=== PATIENT | male | born 1975 | race Caucasian/White ===

== ENCOUNTER 2017-10-22 12:24 | Emergency (ER) | payer BC ==
[2017-10-22] MEDS ORDERED: Alum Hydrox/Mag Hydrox/Simeth 30 ML, Lidocaine 2% 15 ML PO ONE ×2 (13:12)
--- NOTE | 2017-10-22 13:26 | EDM.PDOC ---
ED HPI GENERAL MEDICAL PROBLEM - General Chief Complaint: Chest Pain Stated Complaint: CHEST PAIN Time Seen by Provider: 10/22/17 12:55 Source of Information: Reports: Patient History Limitations: Reports: No Limitations - History of Present Illness INITIAL COMMENTS - FREE TEXT/NARRATIVE: Patient is a 42 y/o female who presents to the E.D. complaining of sharp pain to the anterior/lateral chest worsened with taking a deep breath and palpation. Patient states the pain came on at 0100 hrs last night. States he just flew from [place] to [place] yesterday for work. He consumed 5 to 6 beers last night. Has history of GERD and takes prilosec daily. Is mildly short of breath. He has no history of PE or DVT. Does not have a history of CAD. States at the age of 9 had open heart surgery for SVT. Unclear what procedure was performed. Patient takes atenolol and fish oil. Patient currently denies any cough, hemoptysis, dizziness, presyncope/syncopal episodes, history of pancreatitis, pain to his back, radiating pain, or any additional complaints. Patient does not smoke and does not use any recreational drugs. Mother has a history of coronary disease. Chest Pain Score (Numeric/FACES): 3 - Related Data Allergies Allergy/AdvReac Type Severity Reaction Status Date / Time cephalexin [From Keflex] Allergy Cannot Verified 10/22/17 12:36 Remember Penicillins Allergy Cannot Verified 10/22/17 12:36 Remember Home Meds: Home Meds Atenolol 25 mg PO DAILY 10/22/17 [History] Past Medical History Cardiovascular History: Reports: Other (See Below) Other Cardiovascular History: SVT-open heart at age 9 Respiratory History: Reports: Other (See Below) Other Respiratory History: seasonal allergies Musculoskeletal History: Reports: Other (See Below) Other Musculoskeletal History: right ACL repair Social & Family History - Tobacco Use Smoking Status *Q: Never Smoker - Caffeine Use Caffeine Use: Reports: Coffee, Tea - Recreational Drug Use Recreational Drug Use: No ED ROS GENERAL - Review of Systems Review Of Systems: ROS reveals no pertinent complaints other than HPI. ED EXAM, GENERAL - Physical Exam Exam: See Below Exam Limited By: No Limitations General Appearance: Alert, WD/WN, No Apparent Distress Ears: Hearing Grossly Normal Nose: Normal Inspection Throat/Mouth: Normal Voice, No Airway Compromise Neck: Normal Inspection, Supple Respiratory/Chest: No Respiratory Distress, Lungs Clear, Normal Breath Sounds, No Accessory Muscle Use, Other (tenderness along the left 5/6 rib mid clavicular ) Cardiovascular: Normal Peripheral Pulses, Regular Rate, Rhythm, No Murmur Peripheral Pulses: 4+: Radial (L), Radial (R) GI/Abdominal: Normal Bowel Sounds, Soft, Non-Tender, No Organomegaly, No Distention Extremities: Normal Inspection, Normal Range of Motion, Non-Tender, No Pedal Edema, Normal Capillary Refill Neurological: Alert, Oriented, CN II-XII Intact, Normal Cognition, No Motor/ Sensory Deficits Psychiatric: Normal Affect, Normal Mood Skin Exam: Warm, Dry, Intact, Normal Color Course - Vital Signs Last Recorded V/S: Last Vital Signs Temp 99.3 F 10/22/17 12:34 Pulse 85 10/22/17 14:41 Resp 26 H 10/22/17 14:41 BP 126/77 10/22/17 14:41 Pulse Ox 98 10/22/17 14:41 - Orders/Labs/Meds Labs: Laboratory Tests 10/22/17 10/22/17 10/22/17 Range/Units 13:25 13:25 13:25 WBC 5.94 (4.23-9.07) K/mm3 RBC 5.21 (4.63-6.08) M/mm3 Hgb 15.4 (13.7-17.5) gm/L Hct 43.9 (40.1-51.0) % MCV 84.3 (79.0-92.2) fl MCH 29.6 (25.7-32.2) pg MCHC 35.1 (32.2-35.5) g/dl RDW Std Deviation 36.7 (35.1-43.9) fL Plt Count 187 (163-337) K/mm3 MPV 10.7 (9.4-12.3) fl Neutrophils % (Manual) 76 H (40-60) % Band Neutrophils % 0 (0-10) % Lymphocytes % (Manual) 22 (20-40) % Atypical Lymphs % 0 % Monocytes % (Manual) 1 L (2-10) % Eosinophils % (Manual) 1 (0.8-7.0) % Basophils % (Manual) 0 L (0.2-1.2) Platelet Estimate Adequate RBC Morph Comment Normal D-Dimer, Quantitative < 0.19 L (0.19-0.50) mg/L Sodium 140 (136-145) mEq/L Potassium 4.0 (3.5-5.1) mEq/L Chloride 103 (98-107) mEq/L Carbon Dioxide 29 (21-32) mEq/L Anion Gap 12.0 (5-15) BUN 14 (7-18) mg/dL Creatinine 1.1 (0.7-1.3) mg/dL Est Cr Clr Drug Dosing 94.06 mL/min Estimated GFR (MDRD) > 60 (>60) mL/min BUN/Creatinine Ratio 12.7 L (14-18) Glucose 144 H (74-106) mg/dL Calcium 9.3 (8.5-10.1) mg/dL Total Bilirubin 0.7 (0.2-1.0) mg/dL AST 19 (15-37) U/L ALT 32 (16-63) U/L Alkaline Phosphatase 83 (46-116) U/L Troponin I < 0.017 (0.00-0.056) ng/mL C-Reactive Protein < 0.2 (<1.0) mg/dL Total Protein 7.4 (6.4-8.2) g/dl Albumin 3.9 (3.4-5.0) g/dl Globulin 3.5 gm/dL Albumin/Globulin Ratio 1.1 (1-2) Lipase 69 L (73-393) U/L Meds: Medications Discontinued Medications Generic Name Dose Route Start Last Admin Trade Name Freq PRN Reason Stop Dose Admin Al Hydroxide/Mg Hydroxide 30 0 ml 10/22/17 13:12 10/22/17 13:33 ml/ Lidocaine HCl 15 ml PO 10/22/17 13:13 45 ml ONETIME ONE Administration - Re-Assessments/Exams Free Text/Narrative Re-Assessment/Exam: Labs reviewed: CBC, C14, CRP, DD, Lipase, troponin, CXR, EKG, and GI cocktail. EKG: Sinus rhythm rate of 82, no acute ST changes noted, UT 156, QTc 468. Labs reviewed: CBC and CMP were essentially normal. DDimer <0.19. Troponin < 0.017. CRP <0.2. Lipase WNL. CXR reviewed with with no acute findings noted. Final interpretation is pending. Patient on reexamination states the pain persist unchanged from GI cocktail. No change in pattern. Ordered toradol 60mg IM. Will discharge patient home with instructions as documented for chest wall pain. The patient remained hemodynamically stable while under my care in the E.D. I discussed the concerning symptoms for which to return to the E.D. with the patient. The patient verbalized understanding. All questions were answered. Departure - Departure Time of Disposition: 14:32 Disposition: Home, Self-Care 01 Condition: Good Clinical Impression: Chest wall pain Instructions: Chest Wall Pain, [id number] Referrals: PCP,Not In Area [Primary Care Provider] - Forms: ED Department Discharge Additional Instructions: Take ibuprofen and Tylenol in alternating fashion for pain. Continue taking all your home medications as prescribed. Follow-up with your primary care provider in the next week as needed for reevaluation. Return to the ED if you develop any new or worsening symptoms.
--- NOTE | 2017-10-22 14:34 | CR ---
Chest: Frontal view of the chest was obtained. Comparison: No prior chest x-ray. Heart size and mediastinum are normal. Previous sternotomy is noted with several mediastinal surgical clips. Lungs are clear. Bony structures are grossly intact. Impression: 1. Incidental findings. Nothing acute is appreciated on frontal chest x-ray. Diagnostic code #2
== END 2017-10-22 14:41 | disposition home or self-care (01) ==
LOC: JD.ED 12:24
DX: R07.89 Other chest pain (principal); Z88.1 Allergy status to other antibiotic agents; Z88.0 Allergy status to penicillin
CPT/HCPCS: 36415; 71045; 80053; 83690; 84484; 85007; 85027; 85379; 86140; 93005; 99285; A9270